=== PATIENT | male | born 1995 | race Caucasian/White ===

== ENCOUNTER → 2024-10-10 | Day surgery (SDC) | payer OTHER ==
[~2024-10-10] MED LIST: FENTANYL CITRATE/PF 100MCG/2 ML INJ ONE; GLUCAGON FOR INJ 1 MG VIAL ONE; HYOSCYAMINE SULFATE 0.5 MG/ML INJ ONE; LIDOCAINE HCL 2% LOCAL INJ 5 ML SDV VIAL INJ ONE; MIDAZOLAM HCL 2 MG/2 ML VIAL ONE; PROPOFOL IV EMULSION 10 MG/ML 20 ML VIAL ONE
[2024-10-10] MEDS: LACTATED RINGER'S 1,000 ML ONE (11:00)
[2024-10-10 13:17] VITALS: TEMP 98.9
[2024-10-10 13:40] VITALS: BP 139/78; PULSE 70; RESP 18; O2SAT 98
[2024-10-10 13:53] LABS: CDIFF AG QUIK CHEK NEGATIVE (NEGATIVE); CDIFF TOX QUIK CHEK NEGATIVE (NEGATIVE)
== END | disposition home or self-care (01) ==
LOC: OR 10:51
PROVIDERS: ATTEND Internal Medicine Gastroenterology
DX: K62.89 Other specified diseases of anus and rectum (principal); K52.9 Noninfective gastroenteritis and colitis, unspecified; R15.1 Fecal smearing; K64.8 Other hemorrhoids; Z71.3 Dietary counseling and surveillance; L05.91 Pilonidal cyst without abscess; E66.01 Morbid (severe) obesity due to excess calories; Z68.42 Body mass index [BMI] 45.0-49.9, adult
CPT/HCPCS: 45380; 83630; 83993; 86140; 87045; 87177; 87324; 87328; 87449; 93005; J1610; J1980; J2003; J2250; J2704; J3010; J7121; 45378

== ENCOUNTER 2025-03-13 12:37 | Emergency (ER) | payer OTHER ==
[~2025-03-13] VITALS: Ht 167.6 cm; Wt 133.8 kg
[2025-03-13 13:18] VITALS: PULSE 78; RESP 16; TEMP 96.9
[2025-03-13] MEDS ORDERED: CEPHALEXIN500 MG PO (13:59)
[2025-03-13 14:23] VITALS: BP 138/70; PULSE 74; RESP 18; TEMP 96.7; O2SAT 99
== END 2025-03-13 14:25 | disposition home or self-care (01) ==
LOC: FSED 13:35
DX: L03.114 Cellulitis of left upper limb (principal)
CPT/HCPCS: 99283

== ENCOUNTER 2025-04-06 12:33 | Inpatient (IN) | payer OTHER ==
[~2025-04-06] VITALS: Ht 167.6 cm; Wt 133.8 kg
[~2025-04-06 12:33] MED LIST changes: +CEPHALEXIN500 MG PO; -FENTANYL CITRATE/PF 100MCG/2 ML INJ ONE; -GLUCAGON FOR INJ 1 MG VIAL ONE; -HYOSCYAMINE SULFATE 0.5 MG/ML INJ ONE; -LIDOCAINE HCL 2% LOCAL INJ 5 ML SDV VIAL INJ ONE; -MIDAZOLAM HCL 2 MG/2 ML VIAL ONE; -PROPOFOL IV EMULSION 10 MG/ML 20 ML VIAL ONE
[2025-04-06] MEDS: SODIUM CHLORIDE 0.9% 1000ML 1,000 ML IV ONE (14:01)
[2025-04-06] MEDS ORDERED: ONDANSETRON HCL INJ 2MG/ML 2ML 2 MG/ML VIAL ONE (15:18)
[2025-04-06] MEDS: ONDANSETRON HCL INJ 2MG/ML 2ML 2 MG/ML VIAL IV STA (15:39)
[2025-04-06] MEDS ORDERED: IOPAMIDOL 370 MG/ML 100 ML INFUS..BTL INJ ONE (15:40)
[2025-04-06] MEDS ORDERED: KETOROLAC TROMETHAMINE 30 MG/ML VIAL IV PRN (17:00)
[2025-04-06] MEDS: TAMSULOSIN HCL 0.4 MG CAP PO SCH (17:07)
[2025-04-06] MEDS: SODIUM CHLORIDE 0.9% 1000ML 1,000 ML IV SCH (17:08)
[2025-04-06 17:58] VITALS: PULSE 63; RESP 16; TEMP 98.9
[2025-04-06 20:00] VITALS: BP 147/68; PULSE 64; RESP 18; TEMP 98.7; O2SAT 100
[2025-04-06 21:11] VITALS: BP 134/68; PULSE 64; RESP 18; TEMP 97.7; O2SAT 99
[2025-04-06 21:28] VITALS: BP 147/68; PULSE 64; RESP 18; TEMP 98.7; O2SAT 100
[2025-04-07] VITALS (7 sets, daily range): BP systolic 120–153; BP diastolic 67–97; PULSE 64–90; RESP 17–20; TEMP 97.9–98.6; O2SAT 95–99
[2025-04-07 08:09] LABS: BASOPHILS % 0.2 % (0.0-1.0); EOSINOPHILS % 1.8 % (0.0-6.0); LYMPHOCYTES % 18.1 % (18.0-39.1); MONOCYTES % 10.3 % (4.4-11.3); NEUTROPHILS % 69.3 % (38.7-80.0); RED CELL DISTRIBUTION WIDTH 13.2 % (11.7-14.4)
[2025-04-07 08:31] LABS: EST GLOMERULAR FILTRATION RATE 120.0 ML/MIN (>=60)
[2025-04-07] MEDS: ONDANSETRON HCL INJ 2MG/ML 2ML 2 MG/ML VIAL IV PRN (15:04)
[2025-04-07] MEDS: Morphine 4mg INJECTION 4 MG/ML INJ IV PRN (15:05)
[2025-04-08] VITALS (7 sets, daily range): BP systolic 120–152; BP diastolic 65–96; PULSE 54–75; RESP 19–20; TEMP 97.7–98.6; O2SAT 96–100
[2025-04-08 08:04] LABS: BASOPHILS % 0.1 % (0.0-1.0); EOSINOPHILS % 3.3 % (0.0-6.0); LYMPHOCYTES % 21.8 % (18.0-39.1); MONOCYTES % 10.9 % (4.4-11.3); NEUTROPHILS % 63.5 % (38.7-80.0); RED CELL DISTRIBUTION WIDTH 13.2 % (11.7-14.4)
[2025-04-08 08:36] LABS: EST GLOMERULAR FILTRATION RATE 118.0 ML/MIN (>=60)
[2025-04-08] MEDS ORDERED: TAMSULOSIN HCL 0.4 MG CAP PO SCH (13:30)
[2025-04-09 08:10] VITALS: BP 146/88; PULSE 63; RESP 18; TEMP 98.4; O2SAT 100
[2025-04-09 08:15] VITALS: BP 146/88; PULSE 63; RESP 18; TEMP 98.4; O2SAT 100
[2025-04-09 16:29] VITALS: BP 148/86; PULSE 68; RESP 18; TEMP 98.2; O2SAT 98
[2025-04-09] MEDS ORDERED: PROPOFOL IV EMULSION 10 MG/ML 20 ML VIAL ONE (17:18)
[2025-04-09] MEDS ORDERED: FENTANYL CITRATE/PF 100MCG/2 ML INJ ONE (17:18)
[2025-04-09] MEDS ORDERED: LIDOCAINE HCL 2% LOCAL INJ 5 ML SDV VIAL INJ ONE (17:18)
[2025-04-09] MEDS ORDERED: ACETAMINOPHEN/CODEINE 300MG - 30MG TAB PO PRN (19:15)
[2025-04-09] MEDS ORDERED: PHENAZOPYRIDINE HCL 100 MG TAB PO PRN (19:15)
[2025-04-09 20:00] VITALS: BP 130/77; PULSE 84; RESP 18; TEMP 98; O2SAT 94
[2025-04-09 21:16] VITALS: BP 130/77; PULSE 84; RESP 18; TEMP 98; O2SAT 94
[2025-04-10] VITALS: BP 131/83; PULSE 70; RESP 18; TEMP 98.3; O2SAT 95
[2025-04-10 05:22] VITALS: BP 149/89; PULSE 59; RESP 20; TEMP 97.8; O2SAT 96
[2025-04-10 06:48] LABS: BASOPHILS % 0.2 % (0.0-1.0); EOSINOPHILS % 0.0 % (0.0-6.0); LYMPHOCYTES % 10.1 % (18.0-39.1); MONOCYTES % 8.3 % (4.4-11.3); NEUTROPHILS % 81.0 % (38.7-80.0); RED CELL DISTRIBUTION WIDTH 12.7 % (11.7-14.4)
[2025-04-10 08:00] VITALS: BP 149/92; PULSE 74; RESP 20; TEMP 98.4; O2SAT 99
[2025-04-10] MEDS: SOLIFENACIN SUCCINATE 5 MG TAB PO SCH (08:14)
[2025-04-10 08:34] LABS: EST GLOMERULAR FILTRATION RATE 103.0 ML/MIN (>=60)
[2025-04-10 09:03] VITALS: BP 149/89; PULSE 59; RESP 20; TEMP 97.8; O2SAT 96
[2025-04-10 12:00] VITALS: BP 120/67; PULSE 64; TEMP 98.1; O2SAT 99
[2025-04-10 16:30] VITALS: BP 142/83; PULSE 66; TEMP 98.2; O2SAT 20
== END 2025-04-10 18:00 | disposition home or self-care (01) | DRG 660 ==
LOC: FSED 13:05 → ERHOLD 16:53 → MED/SURG3 18:52
PROVIDERS: ADMIT Internal Medicine; ATTEND Internal Medicine
PROC: 0TC68ZZ Extirpation of Matter from Right Ureter, Via Natural or Artificial Opening Endoscopic (ICD-10-PCS; 2025-04-09)
PROC: BT141ZZ Fluoroscopy of Kidneys, Ureters and Bladder using Low Osmolar Contrast (ICD-10-PCS; 2025-04-09)
PROC: 0T768DZ Dilation of Right Ureter with Intraluminal Device, Via Natural or Artificial Opening Endoscopic (ICD-10-PCS; principal; 2025-04-09 18:25)
PROC: 0T7D8ZZ Dilation of Urethra, Via Natural or Artificial Opening Endoscopic (ICD-10-PCS; 2025-04-09 18:25)
DX: N13.6 Pyonephrosis (principal); E66.01 Morbid (severe) obesity due to excess calories; Z68.42 Body mass index [BMI] 45.0-49.9, adult; E83.51 Hypocalcemia; R31.29 Other microscopic hematuria; N35.919 Unspecified urethral stricture, male, unspecified site; N23 Unspecified renal colic; D64.9 Anemia, unspecified; R11.2 Nausea with vomiting, unspecified
CPT/HCPCS: 36415; 74018; 74177; 74420; 80048; 80053; 81003; 82948; 83970; 84550; 85025; 87086; 88300; 96365; 99283; C1758; C1769; J0696; J2003; J2270; J2405; J7030; Q9967